=== PATIENT | female | born 1955 | race Caucasian/White ===

== ENCOUNTER → 2020-11-14 15:07 | Outpatient (BNVA) | payer OTHER, SELFPAY | PROVIDERS: PCP Internal Medicine; Visit Provider Advanced Practice Midwife | DX: M85.80 Other specified disorders of bone density and structure, unspecified site (principal); Z86.19 Personal history of other infectious and parasitic diseases | CPT/HCPCS: Q3014 ==

== ENCOUNTER → 2020-12-21 08:38 | Outpatient (BNVA) | payer OTHER, SELFPAY | PROVIDERS: Visit Provider Advanced Practice Midwife ==

== ENCOUNTER 2020-12-28 10:53 | Outpatient (REF) | payer OTHER, SELFPAY ==
--- NOTE | ~2020-12-28 | MM_ITS ---
EXAMINATION: BONE DENSITOMETRY CLINICAL INDICATION: Other specified disorders of bone density and structure. COMPARISON: None (current study represents initial baseline exam). TECHNIQUE: Using a [employer] DXA System (software version: 13.1) manufactured by [employer], dual-energy x-ray absorptiometry was performed of the lumbar spine and left hip. The images are of good technical quality. Summary results are attached. FINDINGS: AP SPINE L1-L4: BMD 1.033 g/cm2, Z-score 0.4, T-score -1.2, osteopenia. LEFT FEMUR, NECK: BMD 0.728 g/cm2, Z-score -0.7, T-score -2.2, osteopenia. LEFT FEMUR, TOTAL: BMD 0.756 g/cm2, Z-score -0.8, T-score -2.0, osteopenia. IDENTIFIED RISK FACTORS: Menopause, hysterectomy, bilateral oophorectomy. HISTORY OF FRACTURE: None listed. MEDICATIONS: Calcium supplements or multivitamin, vitamin D. MM/XR DEXA axial skeleton IMPRESSION: 1. DIAGNOSIS: Osteopenia based on the lowest T-score value of -2.2 in the femoral neck applying World Health Organization criteria. 2. 10-YEAR FRACTURE RISK PREDICTION, FRAX: Major osteoporotic fracture (clinical spine, forearm, hip or shoulder) 10.4%. Hip fracture 1.9%. 3. Treatment Recommendations: NOF guidelines recommend consideration for treatment in postmenopausal women and men age 50 and older presenting with the following: -A hip or vertebral (clinical or morphometric) fracture. -T-score less than or equal to -2.5 at the femoral neck or spine after appropriate evaluation to exclude secondary causes. -Low bone mass at the hip or spine and a 10-year fracture probability by FRAX of greater than or equal to 3% for hip fracture or greater than or equal to 20% for major osteoporotic fracture based on the [place] adapted WHO algorithm. 4. Other Recommendations: All treatment decisions require clinical judgment and consideration of individual patient factors, including patient preferences, comorbidities, previous drug use, risk factors not captured in the FRAX model (e.g. frailty, falls, vitamin D deficiency, increased bone turnover, interval significant decline in bone density) and possible under or overestimation of fracture risk by FRAX. Additional medical evaluation for secondary cause of low bone mineral density may be appropriate. FUTURE SCAN RECOMMENDATION: People with diagnosed cases of osteoporosis or at high risk for fracture should have regular bone mineral density tests. For patients eligible for Medicare, routine testing is allowed once every 2 years. The testing frequency can be increased to one year for patients who have rapidly progressing disease, those who are receiving or discontinuing medical therapy to restore bone mass, or have additional risk factors.
== END 2020-12-28 10:54 | disposition home or self-care (01) ==
LOC: HO.MAMMO 10:53
PROVIDERS: Visit Provider Advanced Practice Midwife
DX: Z13.820 Encounter for screening for osteoporosis (principal); Z78.0 Asymptomatic menopausal state; M85.80 Other specified disorders of bone density and structure, unspecified site; Z90.710 Acquired absence of both cervix and uterus; Z90.722 Acquired absence of ovaries, bilateral
CPT/HCPCS: 77080

== ENCOUNTER 2021-03-31 08:21 | Outpatient (REF) | payer OTHER, SELFPAY ==
--- NOTE | ~2021-03-31 | MM_ITS ---
EXAMINATION: MM SCREENING DIGITAL BREAST TOMOSYNTHESIS, BILATERAL CLINICAL INFORMATION: Screening. Asymptomatic. The lifetime risk of breast cancer based on the Tyrer-Cuzick Model is 7%. COMPARISON: Outside mammography: 09/06/2016, 08/31/2016, 06/10/2015 ([facility]). TECHNIQUE: Digital breast tomosynthesis is performed in both the craniocaudal and mediolateral oblique views along with computer-aided detection (CAD). Synthesized 2D images are generated from the tomosynthesis. FINDINGS: There are scattered areas of fibroglandular density (ACR BI-RADS breast composition Category b). There are no significant masses, abnormal calcifications, or other abnormalities. The axilla and skin contours are unremarkable. No significant changes outside exams. MM/MM tomosynthesis screening BI IMPRESSION: No mammographic evidence of malignancy. ASSESSMENT: BI-RADS 1: Negative RECOMMENDATION: Routine annual mammography screening. This patient's information was entered into a reminder system with a target due date for their next mammogram.
== END 2021-03-31 08:22 | disposition home or self-care (01) ==
LOC: HO.MAMMO 08:21
PROVIDERS: Visit Provider Advanced Practice Midwife
DX: Z12.31 Encounter for screening mammogram for malignant neoplasm of breast (principal)
CPT/HCPCS: 77063; 77067

== ENCOUNTER 2021-06-13 07:28 | Outpatient (REF) | payer OTHER, SELFPAY | END 2021-06-13 07:29 | disposition home or self-care (01) | LOC: HO.LAB 07:28 | PROVIDERS: PCP Internal Medicine; Visit Provider Internal Medicine | DX: Z20.822 Contact with and (suspected) exposure to COVID-19 (principal) | CPT/HCPCS: C9803; U0003; U0005 ==

== ENCOUNTER 2021-11-09 08:07 | Outpatient (REF) | payer OTHER, SELFPAY ==
[2021-11-09 09:03] LABS: COVID-19 Test Negative (Negative); IDNOW Serial# 16C4AD1C
== END 2021-11-09 08:08 | disposition home or self-care (01) ==
LOC: HO.LAB 08:07
PROVIDERS: Visit Provider Internal Medicine
DX: Z20.822 Contact with and (suspected) exposure to COVID-19 (principal)
CPT/HCPCS: 87635; C9803

== ENCOUNTER 2022-04-10 13:25 | Outpatient (REF) | payer OTHER, SELFPAY ==
--- NOTE | ~2022-04-10 | MM_ITS ---
EXAMINATION: MM SCREENING DIGITAL BREAST TOMOSYNTHESIS, BILATERAL CLINICAL INFORMATION: Screening. Asymptomatic. The lifetime risk of breast cancer based on the Tyrer-Cuzick Model is 6%. COMPARISON: Mammography: 03/31/2021; outside mammography 09/06/2016, 08/31/2016 ([facility] TECHNIQUE: Digital breast tomosynthesis is performed in both the craniocaudal and mediolateral oblique views along with computer-aided detection (CAD). Synthesized 2D images are generated from the tomosynthesis. FINDINGS: There are scattered areas of fibroglandular density (ACR BI-RADS breast composition Category b). There are no significant masses, abnormal calcifications, or other abnormalities. The axilla and skin contours are unremarkable. MM/MM tomosynthesis screening BI IMPRESSION: No mammographic evidence of malignancy. ASSESSMENT: BI-RADS 1: Negative RECOMMENDATION: Routine annual mammography screening. This patient's information was entered into a reminder system with a target due date for their next mammogram.
== END 2022-04-10 13:26 | disposition home or self-care (01) ==
LOC: HO.MAMMO 13:25
PROVIDERS: Visit Provider Advanced Practice Midwife
DX: Z12.31 Encounter for screening mammogram for malignant neoplasm of breast (principal)
CPT/HCPCS: 77063; 77067

== ENCOUNTER 2023-01-01 10:52 | Outpatient (REF) | payer MEDICARE, SELFPAY ==
--- NOTE | ~2023-01-01 | MM_ITS ---
EXAMINATION: BONE DENSITOMETRY CLINICAL INDICATION: Other specified disorders of bone density and structure, unspecified site.. COMPARISON: Baseline BD dated 12/28/2020. TECHNIQUE: Using a [employer] DXA System (software version: 13.1) manufactured by [employer], dual-energy x-ray absorptiometry was performed of the lumbar spine and left hip. The images are of good technical quality. Summary results are attached. FINDINGS: AP SPINE L1-L4: Current: BMD 1.002 g/cm2, Z-score 0.4, T-score -1.5, osteopenia, 3.0% decrease from baseline (<5% change is not significant). Baseline: BMD 1.033 g/cm2. LEFT FEMUR, NECK: Current: BMD 0.685 g/cm2, Z-score -0.9, T-score -2.5, osteoporosis. Baseline: BMD 0.728 g/cm2. LEFT FEMUR, TOTAL: Current: BMD 0.726 g/cm2, Z-score -0.8, T-score -2.2, osteopenia, 4.0% decrease from baseline (<5% change is not significant). Baseline: BMD 0.756 g/cm2. IDENTIFIED RISK FACTORS: Menopause. Hysterectomy. Bilateral oophorectomy. HISTORY OF FRACTURE: None listed. MEDICATIONS: Calcium supplement or multivitamin. Vitamin D. MM/XR DEXA axial skeleton IMPRESSION: 1. DIAGNOSIS: Osteoporosis based on the lowest T-score value of -2.5 in the femoral neck applying World Health Organization criteria. 2. 10-YEAR FRACTURE RISK PREDICTION, FRAX: According to the guidelines, FRAX calculation should only be performed on patients in the osteopenia bone density category. Therefore, FRAX was not performed on this patient.? 3. Treatment Recommendations: NOF guidelines recommend consideration for treatment in postmenopausal women and men age 50 and older presenting with the following: -A hip or vertebral (clinical or morphometric) fracture. -T-score less than or equal to -2.5 at the femoral neck or spine after appropriate evaluation to exclude secondary causes. -Low bone mass at the hip or spine and a 10-year fracture probability by FRAX of greater than or equal to 3% for hip fracture or greater than or equal to 20% for major osteoporotic fracture based on the [place] adapted WHO algorithm. 4. Other Recommendations: All treatment decisions require clinical judgment and consideration of individual patient factors, including patient preferences, comorbidities, previous drug use, risk factors not captured in the FRAX model (e.g. frailty, falls, vitamin D deficiency, increased bone turnover, interval significant decline in bone density) and possible under or overestimation of fracture risk by FRAX. Additional medical evaluation for secondary cause of low bone mineral density may be appropriate. FUTURE SCAN RECOMMENDATION: People with diagnosed cases of osteoporosis or at high risk for fracture should have regular bone mineral density tests. For patients eligible for Medicare, routine testing is allowed once every 2 years. The testing frequency can be increased to one year for patients who have rapidly progressing disease, those who are receiving or discontinuing medical therapy to restore bone mass, or have additional risk factors.
== END 2023-01-01 10:53 | disposition home or self-care (01) ==
LOC: HO.MAMMO 10:52
PROVIDERS: PCP Hospitalist; Visit Provider Advanced Practice Midwife
DX: Z13.820 Encounter for screening for osteoporosis (principal); M85.80 Other specified disorders of bone density and structure, unspecified site; Z78.0 Asymptomatic menopausal state
CPT/HCPCS: 77080

== ENCOUNTER → 2023-01-03 15:31 | Outpatient (BNVA) | payer MEDICARE, SELFPAY | PROVIDERS: PCP Hospitalist; Visit Provider Advanced Practice Midwife ==

== ENCOUNTER 2023-09-10 07:49 | Outpatient (AMB) | payer MEDICARE, SELFPAY ==
--- NOTE | 2023-09-10 07:51 | MHC.OFFVIS ---
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 She is doing well with some concerns, particularly about vaginal dryness and an area of concern at her left breast she feels. 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 Currently sexually active. She uses NueEve for vaginal dryness and painful sex. She also reports having dry mouth and dry eyes, she takes Collagen and flax seed oil supplements. She would like to take fish oil supplements but she is vegan. She also takes Osteoporosis supplements recommended in a book by Dr. Mart Cortez. Her Cutting And Printing Machine Operator wanted her to consider Fosamax, she is not interested at this time and wants to trial these supplements first. She says using the NueEve helped improve the dryness, but she still has an area of hypopigmentation with bumpiness to the area. STI testing offered; she accepts. She has a hx of a hysterectomy at 52 due to premalignancy on ovary. Last mammogram; 04/10/22, normal. Colonoscopy is UTD. Denies any family history of breast or colon cancer. She has Osteoporosis. 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 Sexual orientation: Straight/Heterosexual Gender identity: Female Female Reproductive History Menstrual Menopause type: surgical Total pregnancies: 2 Full term: 2 Number of Living Children: 2 Date of Mammogram: 04/10/22 ([facility]) Date of last Bone Density Screenin01/01/23 Review of Systems Const All systems reviewed & are unremarkable except as noted in HPI and below Reports as per HPI Eyes Reports no additional complaints ENT Reports no additional complaints Card Reports no additional complaints Resp Reports no additional complaints GI Reports as per HPI and Reports no additional complaints Reports as per HPI Musc Reports no additional complaints Skin/Breast Reports as per HPI Neuro Reports no additional complaints Psych Reports no additional complaints Endo Reports no additional complaints Demetrio/Lymph Reports no additional complaints Aller/Immun Reports no additional complaints Physical Exam Vital Signs: Last Vital Signs BP 110/76 09/10/23 07:53 BMI result Body Mass Index 19.7 Const General: cooperative, healthy appearing, no acute distress, well developed and alert Orientation/consciousness: patient oriented x3 HEENT Head: Yes normal to inspection Eyes General: appearance normal, both eyes and all related structures Neck Neck: Yes normal visual inspection Thyroid: Thyroid normal Chest Chest palpation & inspection: normal inspection of the chest and other (no puckering, dimpling, peau de orange, retraction, discharge, masses) Breast/axilla inspection: abnormal inspection of the breast (bender hemangioma) Left breast, 7 o'clock Breast/axilla palpation: normal palpation of the breasts Resp Effort & Inspection: normal respiratory effort GI Inspection: Yes normal to inspection and Yes scar Palpation (GI): Soft to palpation Rectal Exam - Female: deferred Other: Area of Hypopigmentation scattered on the vulva. Area of rough texture on the upper area of the left labia minora. General: Yes bladder normal to palpation External Female Exam: normal external appearance and normal appearance of the urethra Speculum Exam - Vagina: normal palpation, abnormal vaginal discharge yellow (creamy, may be NueEve product) and vagina atrophic (Moderate atrophic changes) Speculum Exam - Cervix: normal palpation and Cervix absent Bimanual exam- vagina & uterus: normal bimanual exam, normal palpation, bladder normal to palpation, normal palpation and uterus absent (Vaginal cuff present, no lesions or nodules) Bimanual Exam- Adnexa, other: no masses Skin General skin exam: no rashes or lesions noted Rashes: no rashes Neuro General: patient oriented x3 Cognition (Neuro): normal cognition Extrem General: Yes normal to inspection Psych Attitude: cooperative Thought process: Normal thought process present Thought content: Normal thought content present Assessment & Plan Assessment & Plan (1) Encounter for annual routine gynecological examination: Code(s): Z01.419 - Encounter for gynecological examination (general) (routine) without abnormal findings Plan: Discussed: Current recommendations for pap smears per ASCCP guidelines. Breast awareness, periodic self breast exams and yearly mammogram. Maintain a healthy lifestyle, well balanced diet including Calcium 1,200 mg and Vitamin D 600 IU daily, and routine exercise. Contact the office with any postmenopausal bleeding. All of her questions and concerns were addressed to the best of my ability. Mammogram ordered. She will return in one year for AG. (2) Osteoporosis: Code(s): M81.0 - Age-related osteoporosis without current pathological fracture Plan: Currently on supplements for this, including collagen and a supplement recommended by Dr. Mart Cortez in his book on managing Osteoporosis. Her Cutting And Printing Machine Operator wanted her to consider Fosamax, she is not interested at this time. Continue to follow with Cutting And Printing Machine Operator. 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 Recommended a biopsy for area of leukoplakia to rule out abnormal cellular changes-atypia, or other changes leading up to leading up to vulvar/skin cancer. She will follow up for this procedure when scheduled-skin biopsy. Orders: Orders MM tomosynthesis screening BI Today Z12.31 - Encounter for screening mammogram for malignant neoplasm of breast Coding Level of Care Code Est Pt Prev Care >65y(54091) Diagnoses Encounter for annual routine gynecological examination Z01.419 Osteoporosis M81.0 Leukoplakia of vulva N90.4
[2023-09-10 07:53] VITALS: BP 110/76; BMI 19.7
== END 2023-09-10 08:49 | disposition home or self-care (01) ==
PROVIDERS: PCP Hospitalist; Visit Provider Advanced Practice Midwife
DX: N90.4 Leukoplakia of vulva (principal); M81.0 Age-related osteoporosis without current pathological fracture; Z01.419 Encounter for gynecological examination (general) (routine) without abnormal findings
CPT/HCPCS: 99213; G0101

== ENCOUNTER → 2023-09-10 07:49 | Outpatient (BNVA) | payer MEDICARE, SELFPAY | PROVIDERS: PCP Hospitalist; Visit Provider Advanced Practice Midwife | DX: Z01.419 Encounter for gynecological examination (general) (routine) without abnormal findings (principal); M81.0 Age-related osteoporosis without current pathological fracture; N90.4 Leukoplakia of vulva | CPT/HCPCS: 99212 ==

== ENCOUNTER 2023-09-13 07:27 | Outpatient (REF) | payer MEDICARE, SELFPAY | END 2023-09-13 07:28 | disposition home or self-care (01) | LOC: HO.LNP 07:27 | PROVIDERS: PCP Hospitalist; Visit Provider Advanced Practice Midwife | DX: N90.4 Leukoplakia of vulva (principal) | CPT/HCPCS: 56605; 56606; 88305; 88312 ==

== ENCOUNTER 2023-09-13 07:27 | Outpatient (AMB) | payer MEDICARE, SELFPAY ==
--- NOTE | 2023-09-13 07:43 | A.OFFVIS_ITS ---
Intake Vital Signs 3 09/13/23 07:46 Height 5 ft 7 in Weight 125 lb 10.616 oz BMI 19.7 BP 110/62 Intake Visit Reasons: skin biopsy Intake Note: The patient agreed to use of a director medical writing during this encounter. Scribed for ALVARADO Springer by Karlee Moran director medical writing, on 09/13/2023 at 7:45 am EST Research Subject Required: No Information Interpreted: non-clinical & clinical Director Agricultural Services: Director Agricultural Services Present (Simin PÉREZ) Accompanied by: Self / Same As Patient Allergies penicillin V Allergy (Unknown, Verified 09/13/23 07:47) Rash Sulfa (Sulfonamide Antibiotics) Allergy (Unknown, Verified 09/13/23 07:47) Rash No Known Allergies Allergy (Verified 09/13/23 07:47) Post menopausal: Yes HPI HPI Comments 2 History of Present Illness0 Details She presents for skin bx today secondary to vulvar leukoplakia for further diagnosis of skin conditions including diagnosis of skin cancer. She has been using Nueve cream for one year with slight improvement. Patient states she feels the internal right side feels thicker than left. 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 upper left labia 2. introitus, and slightly to the right of midline Office Procedures Skin Biopsy Details: She was counseled regarding anticipatory guidance for the procedure including bleeding, infection, scarring, pain and damage to nerves and underlying tissues.? She was consented for the procedure, and the consent forms were signed. She is agreeable to have the procedure today. All questions were answered. The skin area was anesthetized with Lidocaine 1% using a 3cc syringe and a 25g needle, 0.5cc was injected perpendicular into the dermis at the biopsy site until elevation was noted. A shave biopsy was utilized. The bleeding site was minimal and controlled by direct pressure for several seconds. Vaseline ointment was applied to the biopsy site. The patient tolerated the procedure well and left the department is good condition. The skin area was anesthetized with Lidocaine 1% using a 3cc syringe and a 25g needle, 0.5cc was injected perpendicular into the dermis at the biopsy site until elevation was noted. A shave biopsy was utilized. The bleeding site was minimal and controlled by direct pressure for several seconds. Vaseline ointment was applied to the biopsy site left labia minora and midline introitus. The patient tolerated the procedure well and left the department is good condition. 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 Instructed patient nothing in the vagina for 3-5 days. Can take an over the counter mild analgesic such as Tylenol or Advil (if no allergies) per the coin machine assembler?s recommendation on dosing, frequency, and follow the directions completely. Avoid scratching the area. Clean with water, dry well and wear clean cotton underwear. Apply Vaseline or Aquaphor to the area prn. Call the office if any: fever (over 100.4), flu like symptoms, foul smelling or signs of infection. Return in 1-2 weeks for test results. Orders: Orders 2 Surgical Today N90.4 - Leukoplakia of vulva Coding Level of Care Code Procedure Only Diagnoses Leukoplakia of vulva N90.4
[2023-09-13 07:46] VITALS: BP 110/62; BMI 19.7
== END 2023-09-13 08:27 | disposition home or self-care (01) ==
PROVIDERS: PCP Hospitalist; Visit Provider Advanced Practice Midwife
DX: N90.4 Leukoplakia of vulva (principal)
CPT/HCPCS: 56605; 56606

== ENCOUNTER 2023-09-24 07:37 | Outpatient (AMB) | payer MEDICARE, SELFPAY ==
[2023-09-24 07:50] VITALS: BP 102/64; BMI 19.6
--- NOTE | 2023-09-24 07:50 | A.OFFVIS_ITS ---
Intake Vital Signs 09/24/23 07:50 Height 5 ft 7 in Weight 125 lb BMI 19.6 BP 102/64 Intake Visit Reasons: Biospy Results Intake Note: Scribed for Maribel Machado CNM by [facility] scribe, on 09/24/2023 at 7:45 AM, EST. Allergies penicillin V Allergy (Unknown, Verified 09/24/23 07:52) Rash Sulfa (Sulfonamide Antibiotics) Allergy (Unknown, Verified 09/24/23 07:52) Rash No Known Allergies Allergy (Verified 09/24/23 07:52) HPI HPI Comments History of Present Illness Details Cheyenne is here today for her test results. She has a recent vulvar biopsy x 2. She reports healing well with no signs of infection. She has previously used a OTC vulvar cream (NeuEve). Dx: Lichen Scleorsus. 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 Orientation/consciousness: patient orientated x 3. General: cooperative, no acute distress, well developed and alert External Female Exam: normal external appearance and other (biopsy sites healing well, no signs of infection) Assessment & Plan Assessment & Plan (1) Encounter to discuss test results: Code(s): Z71.2 - Person consulting for explanation of examination or test findings Plan: Discussed biopsy results diagnosis of lichen sclerosis and treatment options topical corticosteroid cream, she chooses to use her current OTC cream will start re-applying and would like to give it 3-4 months and see if there is interval change in the skin. She plans to do a check in at that time or sooner as needed. All of her questions and concerns were addressed to the best of my ability and shared decision making. She is agreeable to the plan of care. (2) Lichen sclerosus: Code(s): L90.0 - Lichen sclerosus et atrophicus Coding Level of Care Code Est Pt Level 3 (15622) Diagnoses Encounter to discuss test results Z71.2 Lichen sclerosus L90.0
== END 2023-09-24 08:43 | disposition home or self-care (01) ==
PROVIDERS: PCP Hospitalist; Visit Provider Advanced Practice Midwife
DX: Z71.2 Person consulting for explanation of examination or test findings (principal); L90.0 Lichen sclerosus et atrophicus
CPT/HCPCS: 99213

== ENCOUNTER → 2023-09-24 07:37 | Outpatient (BNVA) | payer MEDICARE, SELFPAY | PROVIDERS: PCP Hospitalist; Visit Provider Advanced Practice Midwife | DX: Z71.2 Person consulting for explanation of examination or test findings (principal); L90.0 Lichen sclerosus et atrophicus | CPT/HCPCS: 99212 ==

== ENCOUNTER 2023-11-05 09:07 | Outpatient (REF) | payer MEDICARE, SELFPAY ==
--- NOTE | ~2023-11-05 | MM_ITS ---
EXAMINATION: MM SCREENING DIGITAL BREAST TOMOSYNTHESIS, BILATERAL CLINICAL INFORMATION: Screening. Asymptomatic. COMPARISON: Mammography: This study is compared with prior exams dating back to 2016. TECHNIQUE: Digital breast tomosynthesis is performed in both the craniocaudal and mediolateral oblique views along with computer-aided detection (CAD). Synthesized 2D images are generated from the tomosynthesis. FINDINGS: There are scattered areas of fibroglandular density (ACR BI-RADS breast composition Category b). There are no significant masses, abnormal calcifications, or other abnormalities. MM/MM tomosynthesis screening BI IMPRESSION: No mammographic evidence of malignancy. ASSESSMENT: BI-RADS BI-RADS 1 - Negative RECOMMENDATION: Routine annual mammography screening. 1 year F/U This examination should not preclude the clinical evaluation of a suspicious palpable abnormality. This patient's information was entered into a reminder system with a target due date for their next mammogram.
== END 2023-11-05 09:08 | disposition home or self-care (01) ==
LOC: HO.MAMMO 09:07
PROVIDERS: Visit Provider Advanced Practice Midwife
DX: Z12.31 Encounter for screening mammogram for malignant neoplasm of breast (principal)
CPT/HCPCS: 77063; 77067

== ENCOUNTER → 2023-11-05 09:15 | Outpatient (BNV) | payer MEDICARE, SELFPAY | PROVIDERS: Visit Provider Radiology Diagnostic Radiology | DX: Z12.31 Encounter for screening mammogram for malignant neoplasm of breast (principal) | CPT/HCPCS: 77063; 77067 ==

== ENCOUNTER 2024-07-23 10:27 | Outpatient (REF) | payer MEDICARE, SELFPAY | END 2024-07-23 10:28 | disposition home or self-care (01) | LOC: HO.SH 10:27 | PROVIDERS: Visit Provider Hospitalist | DX: Z01.118 Encounter for examination of ears and hearing with other abnormal findings (principal); H93.293 Other abnormal auditory perceptions, bilateral | CPT/HCPCS: 92557; 92567 ==

== ENCOUNTER 2024-09-18 07:45 | Outpatient (AMB) | payer MEDICARE, SELFPAY ==
--- NOTE | 2024-09-18 07:56 | A.OFFVIS_ITS ---
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 Pylori and Chronic Gastritis show up on the colonoscopy, wanted to talk if H. Pylori could have caused her lichen. Stated that she has to get up 1-2 nights per week to urinate. 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 She is doing well with concerns. History of lichen sclerosus recent diagnosis of H pylori and treatment she found literature that linked H pylori to lichen sclerosus and has some questions regarding this information. Currently she has abdominal bloating and concerns for recent findings on her pancreas. Has a GI specialist at [facility] and a follow up MRI scheduled for October. Using NeuEve for her lichen condition Biweekly, and vaginal suppository for dryness, she reports since treated with a GI infection her LS symptoms have improved and she has no concerns. She is not interested in corticosteroid therapy. Currently sexually active. Uses a lubricant for dryness and vaginal discomfort. History of osteoporosis is using supplements, does not want medical treatment. Is due for a bone density this December. 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 Hysterectomy due to pre ovarian cancer. Last mammogram; 2023. Colonoscopy is UTD. Denies any family history of breast, ovarian or colon cancer. 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 Sexual orientation: Straight/Heterosexual Gender identity: Female Female Reproductive History Menstrual Age of Menarche: 16 Menopause type: surgical Age of menopause: 51 Total pregnancies: 2 Full term: 2 Number of Living Children: 2 History of abnormal pap smear: No History of STI: Yes (genital herpes) Date of Mammogram: 11/05/23 History of abnormal mammogram: No Date of last Bone Density Screenin01/01/23 Review of Systems Const All systems reviewed & are unremarkable except as noted in HPI and below Reports as per HPI Eyes Reports no additional complaints ENT Reports no additional complaints Card Reports no additional complaints Resp Reports no additional complaints GI Reports as per HPI and Reports no additional complaints Reports as per HPI Musc Reports no additional complaints Skin/Breast Reports as per HPI Neuro Reports no additional complaints Psych Reports no additional complaints Endo Reports no additional complaints Demetrio/Lymph Reports no additional complaints Aller/Immun Reports no additional complaints Physical Exam Const General: cooperative, healthy appearing, no acute distress, well developed and alert Orientation/consciousness: patient oriented x3 HEENT Head: Yes normal to inspection Eyes General: appearance normal, both eyes and all related structures Neck Neck: Yes normal visual inspection Thyroid: Thyroid normal Chest Chest palpation & inspection: normal inspection of the chest and other (no puckering, dimpling, peau de orange, retraction, discharge, masses) Breast/axilla inspection: normal inspection of the breasts Breast/axilla palpation: normal palpation of the breasts Resp Effort & Inspection: normal respiratory effort GI Inspection: Yes normal to inspection Palpation (GI): Soft to palpation Rectal Exam - Female: deferred Other: No evidence of lichen changes, no lesions. General: Yes bladder normal to palpation External Female Exam: normal external appearance and normal appearance of the urethra Speculum Exam - Vagina: normal appearance of the vagina, normal palpation, normal vaginal discharge and vagina atrophic Speculum Exam - Cervix: normal appearance of the cervix and normal palpation Bimanual exam- vagina & uterus: normal bimanual exam, normal palpation, uterine size normal, bladder normal to palpation, normal palpation and non-tender Bimanual Exam- Adnexa, other: no masses Skin General skin exam: no rashes or lesions noted Rashes: no rashes Neuro General: patient oriented x3 Cognition (Neuro): normal cognition Extrem General: Yes normal to inspection Psych Attitude: cooperative Thought process: Normal thought process present Assessment & Plan Assessment & Plan (1) Encounter for annual routine gynecological examination: Code(s): Z01.419 - Encounter for gynecological examination (general) (routine) without abnormal findings Category: Medical (2) Osteoporosis: Code(s): M81.0 - Age-related osteoporosis without current pathological fracture Category: Medical Qualifiers: Encounter type: subsequent encounter Osteoporosis type: age-related Plan Discussed: Breast awareness, periodic self breast exams and yearly mammogram. Maintain a healthy lifestyle, well balanced diet including Calcium 1,200 mg and Vitamin D 600 IU daily, and routine exercise. Lichen sclerosus, routine standard of care treatment with corticosteroids, patient is not interested, prefers to continue with her botanicals as they were working well. Is interested in repeating her bone density in December when due, orders placed today. Patient verbalizes understanding and agrees to the plan of care. She was given opportunity to ask questions and all questions were answered to the best of my ability. RTO in 1 year for annual tripe finisher exam, or p.r.n.. This note is constructed using voice recognition software. While every effort has been made to ensure accuracy, fixed route bus operator errors may have been included. Orders: Orders XR DEXA axial skeleton 12/28/24 M81.0 - Age-related osteoporosis without current pathological fracture Coding Level of Care Code Est Pt Prev Care >65y(01431) Diagnoses Encounter for annual routine gynecological examination Z01.419 Osteoporosis M81.0 Encounter type: subsequent encounter Osteoporosis type: age-related
[2024-09-18 08:02] VITALS: BP 126/72; BMI 19.6
== END 2024-09-18 09:02 | disposition home or self-care (01) ==
LOC: HO.HWS 07:45
PROVIDERS: Visit Provider Advanced Practice Midwife
DX: Z01.419 Encounter for gynecological examination (general) (routine) without abnormal findings (principal); M81.0 Age-related osteoporosis without current pathological fracture
CPT/HCPCS: 99397

== ENCOUNTER → 2024-09-18 07:45 | Outpatient (BNVA) | payer MEDICARE, SELFPAY | PROVIDERS: Visit Provider Advanced Practice Midwife | DX: Z01.419 Encounter for gynecological examination (general) (routine) without abnormal findings (principal); M81.0 Age-related osteoporosis without current pathological fracture | CPT/HCPCS: 99397 ==

== ENCOUNTER 2025-01-08 10:47 | Outpatient (REF) | payer MEDICARE, SELFPAY ==
--- NOTE | ~2025-01-08 | MM_ITS ---
EXAMINATION: DXA BONE DENSITY AXIAL HISTORY: Estrogen deficiency TECHNIQUE: [employer]hot Dual energy absorptiometry (DEXA) of the lumbar spine, total left hip, and femoral neck was performed. COMPARISON: Comparison is made with the prior examination dated 01/01/2023. FINDINGS: The bone mineral density of the lumbar spine is 0.989 with a T-score of -1.6, and a Z-score of 0.3. This represents a BMD change of -1.3% compared to the prior exam. This is not statistically significant. The bone mineral density of the left total hip is 0.735 with a T-score of -2.2, and a Z-score of -0.6. This represents a BMD change of 1.2% compared to the prior exam. This is statistically significant. The bone mineral density of the left femoral neck is 0.705 with a T-score of -2.4, and a Z-score of -0.6. This represents a BMD change of 2.9% compared to the prior exam. FRACTURE RISK: The FRAX index suggests a ten year probability of major osteoporotic fracture of 11.7%, and of hip fracture 2.8%. MM/XR DEXA axial skeleton IMPRESSION: Based on bone mineral density, and according to World Health Organization (WHO) criteria, the diagnosis is consistent with osteopenia. All bone density values are in grams per centimeter squared (g/cm2). Statistically, 68% of repeat scans fall within 1 SD (+/- 0.010 g/cm2 for AP spine L1-L4) and 1 SD (+/- 0.012 g/cm2 for femur total) FRAX is a trademark of the [employer]'s [place] for Metabolic Bone Disease, a World Health Organization (WHO) Collaborating Center. Electronically signed by: Marvin Zuluaga MD 01/08/2025 11:54 AM EDT
--- OUTSIDE RECORDS SUMMARY | 2025-01-08 12:23 | XMS_ITS | Encounter Summary ---
Author Organization [facility] Address [address] [place] [address] [place] [address] Care Team Providers Care Evaporator Repairer Name Role Phone Unavailable Primary Care Provider Unavailabl e Encounter Details Date Type Department Care Team (Latest Contact Info) Description 08/23/2021 Abstract [facility]VERSION[facility] Dental, Provider, DDS Social History Tobacco Use Types Packs/Day Years Used Date Smoking Tobacco: Never Assessed Sex and Gender Information Value Date Recorded Sex Assigned at Not on file Legal Sex Male 5:36 PM EDT Gender Identity Not on file Sexual Orientation Not on file documented as of this encounter Plan of Treatment Not on file documented as of this encounter Visit Diagnoses Not on filedocumented in this encounter
--- OUTSIDE RECORDS SUMMARY | 2025-01-08 12:23 | XMS_ITS | Encounter Summary ---
Author Organization [email or web address] Address [address] [place] [address] [place] [address] Care Team Providers Care Dining Car Hop Name Role Phone Unavailable Primary Care Provider Unavailabl e Encounter Details Date Type Department Care Team (Latest Contact Info) Description 12/05/2020 [facility] Dental, Provider, DDS Social [...]
--- OUTSIDE RECORDS SUMMARY | 2025-01-08 12:23 | XMS_ITS | Data Portability ---
Author Organization [place] - [facility] - Start Up, MAIN OFFICE Address [address] [place] [address] Assessment Encounter Date Assessment Date Assessment LastModified by Organization Details LastModified Time 02/06/2023 02/06/2023 Spent 25 minutes for evaluation and management, including face to face interaction, review of labs and notes from specialist, discussion and coordination of care. Not available 02/06/2023 11:50:34 09/11/2023 09/11/2023 Spent 60 minutes for evaluation and management, including face to face interaction, review of labs and notes from specialist, discussion and coordination of care. Not available 09/11/2023 09:01:12 10/02/2023 10/02/2023 Spent 25 minutes for evaluation and management, including face to face interaction, review of labs and notes from specialist, discussion and coordination of care. Not available 10/21/2023 20:07:46 11/07/2023 11/07/2023 Spent 45 minutes for evaluation and management, including face to face interaction, review of labs and notes from specialist, discussion and coordination of care. Not available 11/20/2023 12:25:18 12/01/2024 12/01/2024 Spent 70 minutes for evaluation and management, including face to face interaction, review of labs and notes from specialist, discussion and coordination of care. Not available 12/01/2024 10:11:08 Plan of Treatment Reminders Order Date Submit Date Provider Last Modified By Organization Details Last Modified Time Details Appointments ANNUAL EXAM 2025 11:00A M Dr. Walden Not available Not available Not available Lab lipid panel, blood 2024 025 [facility], [address], [place], [address], 12/08/2024 04:07:39 CBC w/ auto diff 2024 025 [facility], [address], [place], [address], 12/08/2024 04:07:40 CMP, serum or plasma 2024 025 [facility]LE [facility], [address], [place], [address], 12/08/2024 04:07:40 fecal occult blood, stool - stool sample 2022 023 L[facility]LE [facility] (Centralized Electronic Ordering - All Locations), Patient Can Go To The Location Of Their Choice, 10/08/2023 08:18:56 hemoglobi n, qual FIT, stool 2022 023 [facility] (Centralized Electronic Ordering - All Locations), Patient Can Go To The Location Of Their Choice, 04/12/2024 05:01:45 CBC w/ auto diff 2022 024 [facility]LE [facility] (Centralized Electronic Ordering - All Locations), Patient Can Go To The Location Of Their Choice, 09/06/2024 05:01:36 ferritin, serum or plasma 2022 024 [facility]LE [facility] (Centralized Electronic Ordering - All Locations), Patient Can Go To The Location Of Their Choice, 06/28/2024 05:01:32 iron + total iron-bind ing capacity (TIBC), serum 2022 024 [facility] (Centralized Electronic Ordering - All Locations), Patient Can Go To The Location Of Their Choice, 06/28/2024 05:01:32 retic count, blood 2022 024 [facility] (Centralized Electronic Ordering - All Locations), Patient Can Go To The Location Of Their Choice, 06/28/2024 05:01:32 CBC w/ auto diff 2022 024 [facility] (Centralized Electronic Ordering - All Locations), Patient Can Go To The Location Of Their Choice, 02/18/2024 16:14:42 CMP, serum or plasma 2022 024 [facility] (Centralized Electronic Ordering - All Locations), Patient Can Go To The Location Of Their Choice, 02/18/2024 19:36:19 TSH + free T4, serum 2022 023 [facility] (Centralized Electronic Ordering - All Locations), Patient Can Go To The Location Of Their Choice, 03/22/2024 05:01:31 CBC w/ auto diff 2022 023 [facility] (Centralized Electronic Ordering - All Locations), Patient Can Go To The Location Of Their Choice, 09/16/2023 17:30:40 CMP, serum or plasma 2022 023 [facility] (Centralized Electronic Ordering - All Locations), Patient Can Go To The Location Of Their Choice, 09/16/2023 15:25:14 ferritin, serum or plasma 2022 023 [facility] (Centralized Electronic Ordering - All Locations), Patient Can Go To The Location Of Their Choice, 09/16/2023 15:48:34 iron + TIBC + ferritin, serum 2022 023 [facility] (Centralized Electronic Ordering - All Locations), Patient Can Go To The Location Of Their Choice, 03/22/2024 05:01:31 vitamin D, 25-hydrox y, total, serum 2022 023 [facility] (Centralized Electronic Ordering - All Locations), Patient Can Go To The Location Of Their Choice, 09/16/2023 15:48:35 PTH (parathyr oid hormone), intact, serum or plasma 2022 023 [facility] (Centralized Electronic Ordering - All Locations), Patient Can Go To The Location Of Their Choice, [id number] 09/16/2023 17:00:00 lipid panel, blood 2022 023 [facility] (Centralized Electronic Ordering - All Locations), Patient Can Go To The Location Of Their Choice, [id number] 09/16/2023 15:25:17 fecal occult blood, stool 2022 023 [facility] (Centralized Electronic Ordering - All Locations), Patient Can Go To The Location Of Their Choice, [id number] 09/16/2023 07:31:36 Referral endocrino logy referral - Please see pt ASAPIncid ental finding on CT ordered by GI MRI showed 1.5 cm fat containin g and repeat MRI showed the unchanged lesionPt wants to see endo at [facility] 2024 025 LAVELLE Elias MD, [address] [place], [address], 12/29/2024 04:04:[address] referral - Air conductio n was the same b/l but bone conductio n was decrease Air conductio n was the same b/l but bone conductio n was decrease 2023 024 LAVELLE Not available 11/08/2024 05:00:44 sleep medicine referral - Pt reports snoring Want 2023 024 [facility], [address] [facility], [place], [address], 06/07/2024 05:01:10 gastroent erologist referral - Need routine colonosco py Has chronic GERD as well 2023 024 [facility], [address] [place], [address], 06/07/2024 05:01:10 Procedures None recorded. Surgeries None recorded. Imaging XR, neck - Reports worsening of painPleas e fax resutls to [phone] 2022 023 [facility], [address] [place], [address], 08/18/2023 05:01:03 XR, hip, bilateral , 2 view - reports worsening of painplz fax to 2022 023 [facility], [address] [place] [address], [id number], 08/18/2023 05:01:03 XR, lumbar spine, 2 view - reports worsening of pain 2022 023 [facility], [address] [place] [address], [id number], 08/18/2023 05:01:03 Medication Orders Debrox 6.5 % ear drops 2023 024 [id number], [address] [place] [address], [address], 11/07/2023 11:26:40 fluocinol one 0.01 % topical body oil 2022 023 [id number], [address] [place], [address], 09/11/2023 09:57:32 fluocinol one 0.01 % scalp oil and shower cap 2022 023 [facility], [address] [place], [address], 09/17/2023 08:54:03 fluocinol one 0.01 % scalp oil and shower cap 2022 023 [id number], [address] [place] [address], [id number], 09/17/2023 08:59:39 Patient TargetsNo targets recorded. Patient Instructions Encounter Date Encounter Id Patient Instructions Last Modified By Organization Details Last Modified Time 09/11/2023 [id number] Patient Health Questionnaire-9* - scored 3 LAVELLE Not available 09/27/2024 05:01:59 Eczema: Care Instructions Not available 09/11/2023 09:57:27 12/01/2024 [id number] Patient Health Questionnaire-9* Not available 12/01/2024 10:53:13 CAGE questionnaire* Not available 12/01/2024 10:53:13 Reason for Referral Sleep Medicine Referral for Obstructive sleep apnea syndrome Pt reports snoring Want Referring Physician: Sreekanth Walden, Internal Medicine, Encounter Date: 11/07/2023 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 Referral for Hea ring loss Air conduction was the same b/l but bone conduction was decrease Air conduction was the same b/l but bone conduction was decrease Referring Physician: Sreekanth Walden, Internal Medicine, Encounter Date: 11/07/2023 Solution Coordinator Referral for Screening for malignant neoplasm of colon Need routine colonoscopy Has chronic GERD as well Referring Physician: Sreekanth Walden, Internal Medicine, Encounter Date: 11/07/2023 Endocrinology Referral for A drenal mass Please see pt ASAPIncidental finding on CT ordered by GI MRI showed 1.5 cm fat containing and repeat MRI showed the unchanged lesionPt wants to see endo at [facility] Referring Physician: Sreekanth Walden, Internal Medicine, Encounter Date: 12/01/2024 Results Created Date Observation Date Name Description Value Unit Range Abnormal Flag Note LastModifiedBy Organization Detail LastModifiedTime 09/16/2009/16/2023 FECAL OCCUL T BLOOD , IMMUN OCHEM ICAL results Test Cance lled, order administrator error Not Available [facility] (Centralized Electronic Ordering - All Locations) Patient Can Go To The Location Of Their Choice, 09/16/2023 07:31:35 09/16/2009/16/2023 COMPR EHENS TERRY METAB OLIC PANL glucose 88 mg/dL (70-99 ) Not Available [facility] (Centralized Electronic Ordering - All Locations) Patient Can Go To The Location Of Their Choice, 09/16/2023 15:25:14 09/16/2009/16/2023 COMPR EHENS TERRY METAB OLIC PANL BUN 11 mg/dL (8-23) Not Available [facility] (Centralized Electronic Ordering - All Locations) Patient Can Go To The Location Of Their Choice, 09/16/2023 15:25:14 09/16/2009/16/2023 COMPR EHENS TERRY METAB OLIC PANL creatinine 0.8 mg/dL (0.5-1 .0) Not Available [facility] (Centralized Electronic Ordering - All Locations) Patient Can Go To The Location Of Their Choice, 09/16/2023 15:25:14 09/16/2009/16/2023 COMPR EHENS TERRY METAB OLIC PANL sodium 142 mmol/ L (133-1 45) Not Available [facility] (Centralized Electronic Ordering - All Locations) Patient Can Go To The Location Of Their Choice, 09/16/2023 15:25:14 09/16/2009/16/2023 COMPR EHENS TERRY METAB OLIC PANL potassium 4.0 mmol/ L (3.6-5 .2) Not Available [facility] (Centralized Electronic Ordering - All Locations) Patient Can Go To The Location Of Their Choice, 09/16/2023 15:25:14 09/16/2009/16/2023 COMPR EHENS TERRY METAB OLIC PANL chloride 105 mmol/ L (98-10 7) Not Available [facility] (Centralized Electronic Ordering - All Locations) Patient Can Go To The Location Of Their Choice, 09/16/2023 15:25:14 09/16/2009/16/2023 COMPR EHENS TERRY METAB OLIC PANL bicarbonate 28 mmol/ L (22-29 ) Not Available [facility] (Centralized Electronic Ordering - All Locations) Patient Can Go To The Location Of Their Choice, 09/16/2023 15:25:14 09/16/2009/16/2023 COMPR EHENS TERRY METAB OLIC PANL anion gap 9 (4-17) Not Available [facility] (Centralized Electronic Ordering - All Locations) Patient Can Go To The Location Of Their Choice, 09/16/2023 15:25:14 09/16/2009/16/2023 COMPR EHENS TERRY METAB OLIC PANL albumin 4.4 gm/dL (3.4-4 .8) Not Available [facility] (Centralized Electronic Ordering - All Locations) Patient Can Go To The Location Of Their Choice, 09/16/2023 15:25:14 09/16/2009/16/2023 COMPR EHENS TERRY METAB OLIC PANL calcium 9.2 mg/dL (8.6-1 0.5) Not Available [facility] (Centralized Electronic Ordering - All Locations) Patient Can Go To The Location Of Their Choice, 09/16/2023 15:25:14 09/16/2009/16/2023 COMPR EHENS TERRY METAB OLIC PANL bilirubin,to oren 0.4 mg/dL (0-1.2 ) Not Available [facility] (Centralized Electronic Ordering - All Locations) Patient Can Go To The Location Of Their Choice, 09/16/2023 15:25:14 09/16/2009/16/2023 COMPR EHENS TERRY METAB OLIC PANL total protein 6.3 gm/dL (6.2-8 .2) Not Available [facility] (Centralized Electronic Ordering - All Locations) Patient Can Go To The Location Of Their Choice, 09/16/2023 15:25:14 09/16/2009/16/2023 COMPR EHENS TERRY METAB OLIC PANL Ag ratio 2.3 Not Available [facility] (Centralized Electronic Ordering - All Locations) Patient Can Go To The Location Of Their Choice, 09/16/2023 15:25:14 09/16/2009/16/2023 COMPR EHENS TERRY METAB OLIC PANL AST 17 U/L (0-32) Not Available [facility] (Centralized Electronic Ordering - All Locations) Patient Can Go To The Location Of Their Choice, 09/16/2023 15:25:14 09/16/2009/16/2023 COMPR EHENS TERRY METAB OLIC PANL alk phos 78 U/L (35-10 4) Not Available [facility] (Centralized Electronic Ordering - All Locations) Patient Can Go To The Location Of Their Choice, 09/16/2023 15:25:14 09/16/2009/16/2023 COMPR EHENS TERRY METAB OLIC PANL ALT 10 U/L (0-33) Not Available [facility] (Centralized Electronic Ordering - All Locations) Patient Can Go To The Location Of Their Choice, 09/16/2023 15:25:14 09/16/2009/16/2023 COMPR EHENS TERRY METAB OLIC PANL estimated GFR creatinine 78 mL/mi n/1.7 3_M2 Creat inine based estim ated glome normar rextr ation (eGFR ) in adult s is calcu lated using the Natio nal Kidne y Found ation recom ailyn d 2020 CKD-E PI equat ion. Estim ates GFR from serum creat inine , age and sex. Not Available [facility] (Centralized Electronic Ordering - All Locations) Patient Can Go To The Location Of Their Choice, 09/16/2023 15:25:14 09/16/2009/16/2023 IRON & TIBC iron 67 mcg/d L (30-16 0) Not Available [facility] (Centralized Electronic Ordering - All Locations) Patient Can Go To The Location Of Their Choice, 09/16/2023 15:25:15 09/16/2009/16/2023 IRON & TIBC unsaturated iron binding capac 251 mcg/d L (110-3 70) Not Available [facility] (Centralized Electronic Ordering - All Locations) Patient Can Go To The Location Of Their Choice, 09/16/2023 15:25:15 09/16/2009/16/2023 IRON & TIBC est T. iron bind capacity 318 mcg/d L (140-5 30) Not Available [facility] (Centralized Electronic Ordering - All Locations) Patient Can Go To The Location Of Their Choice, [id number] 09/16/2023 15:25:15 09/16/2009/16/2023 IRON & TIBC % iron saturation 21 % (20-55 ) Not Available [facility] (Centralized Electronic Ordering - All Locations) Patient Can Go To The Location Of Their Choice, [id number] 09/16/2023 15:25:15 09/16/2009/16/2023 LIPID PANEL W REFLE X TO DLDL cholesterol, total 223 mg/dL (<200) high Not Available [facility] ([facility] Order[facility] - All Locations) Patient Can Go To The Location Of Their Choice, [id number] 09/16/2023 15:25:16 09/16/20 23 09/16/2023 LIPID PANEL W REFLE X TO DLDL triglyceride s 55 mg/dL (<150) Not Available [facility] ([facility] Order[facility] - All Locations) Patient Can Go To The Location Of Their Choice, 09/16/2023 15:25:16 09/16/2009/16/2023 LIPID PANEL W REFLE X TO DLDL HDL chol 95 mg/dL (>39) Not Available [facility] (Centralized Electronic Ordering - All Locations) Patient Can Go To The Location Of Their Choice, 09/16/2023 15:25:16 09/16/2009/16/2023 LIPID PANEL W REFLE X TO DLDL LDL cholesterol, calculated 117 mg/dL (0-130 ) Not Available [facility] (Centralized Electronic Ordering - All Locations) Patient Can Go To The Location Of Their Choice, 09/16/2023 15:25:16 09/16/2009/16/2023 LIPID PANEL W REFLE X TO DLDL non HDL cholesterol (calc) 128 mg/dL (<160) Not Available [facility] ([facility] Ordering - All Locations) Patient Can Go To The Location Of Their Choice, 09/16/2023 15:25:16 09/16/2009/16/2023 LIPID PANEL W REFLE X TO DLDL cholesterol/ HDL ratio (calc) 2.3 (<5.0) Refer ence range for child derrick have not been well estab cuco meyers. Adult refer ence range is equal or less than 5 Not Available [facility] (Centralized Electronic Ordering - All Locations) Patient Can Go To The Location Of Their Choice, 09/16/2023 15:25:16 09/16/2009/16/2023 EDISON TIN ferritin 25 NG/mL (14-28 3) Not Available [facility] (Centralized Electronic Ordering - All Locations) Patient Can Go To The Location Of Their Choice, 09/16/2023 15:48:34 09/16/2009/16/2023 25OH VITAM IN D 25OH vitamin D 68.7 NG/mL (20-50 ) high Not Available [facility] (Centralized Electronic Ordering - All Locations) Patient Can Go To The Location Of Their Choice, 09/16/2023 15:48:35 09/16/2009/16/2023 PTH, INTAC T PTH, intact 43 pg/mL (15-65 ) Not Available [facility] (Centralized Electronic Ordering - All Locations) Patient Can Go To The Location Of Their Choice, [id number] 09/16/2023 17:00:00 09/16/2009/16/2023 COMPL ETE CBC WITH DIFF WBC 3.7 K/mm3 (4.0-1 1.0) low Not Available [facility] (Centralized Electronic Ordering - All Locations) Patient Can Go To The Location Of Their Choice, [id number] 09/16/2023 17:30:40 09/16/2009/16/2023 COMPL ETE CBC WITH DIFF RBC 4.55 M/mm3 (4.20- 5.40) Not Available [facility] (Centralized Electronic Ordering - All Locations) Patient Can Go To The Location Of Their Choice, [id number] 09/16/2023 17:30:40 09/16/2009/16/2023 COMPL ETE CBC WITH DIFF HGB 13.0 gm/dL (11.7- 15.5) Not Available [facility] (Centralized Electronic Ordering - All Locations) Patient Can Go To The Location Of Their Choice, [id number] 09/16/2023 17:30:40 09/16/2009/16/2023 COMPL ETE CBC WITH DIFF HCT 42.2 % (35.7- 45.8) Not Available [facility] (Centralized Electronic Ordering - All Locations) Patient Can Go To The Location Of Their Choice, [id number] 09/16/2023 17:30:40 09/16/2009/16/2023 COMPL ETE CBC WITH DIFF MCV 92.7 fL (80.0- 100.0) Not Available [facility] (Centralized Electronic Ordering - All Locations) Patient Can Go To The Location Of Their Choice, [id number] 09/16/2023 17:30:40 09/16/2009/16/2023 COMPL ETE CBC WITH DIFF MCH 28.6 pg (27.0- 34.0) Not Available [facility] (Centralized Electronic Ordering - All Locations) Patient Can Go To The Location Of Their Choice, [id number] 09/16/2023 17:30:40 09/16/2009/16/2023 COMPL ETE CBC WITH DIFF MCHC 30.8 g/dL (33.0- 37.0) low Not Available [facility] (Centralized Electronic Ordering - All Locations) Patient Can Go To The Location Of Their Choice, 09/16/2023 17:30:40 09/16/2009/16/2023 COMPL ETE CBC WITH DIFF plt 183 K/mm3 (150-4 60) Not Available [facility] (Centralized Electronic Ordering - All Locations) Patient Can Go To The Location Of Their Choice, 09/16/2023 17:30:40 09/16/2009/16/2023 COMPL ETE CBC WITH DIFF RDW-SD 46.3 fL (<47.0 ) Not Available [facility] (Centralized Electronic Ordering - All Locations) Patient Can Go To The Location Of Their Choice, 09/16/2023 17:30:40 09/16/2009/16/2023 COMPL ETE CBC WITH DIFF MPV 12.9 fL (9.4-1 2.4) high Not Available [facility] (Centralized Electronic Ordering - All Locations) Patient Can Go To The Location Of Their Choice, 09/16/2023 17:30:40 09/16/2009/16/2023 COMPL ETE CBC WITH DIFF automated NRBC 0.0 #/100 _WBC' s Not Available [facility] (Centralized Electronic Ordering - All Locations) Patient Can Go To The Location Of Their Choice, 09/16/2023 17:30:40 09/16/2009/16/2023 COMPL ETE CBC WITH DIFF abs. NRBC 0.0 K/mm3 Not Available [facility] (Centralized Electronic Ordering - All Locations) Patient Can Go To The Location Of Their Choice, 09/16/2023 17:30:40 09/16/2009/16/2023 COMPL ETE CBC WITH DIFF neut # 2.2 K/mm3 (1.3-7 .0) Not Available [facility] (Centralized Electronic Ordering - All Locations) Patient Can Go To The Location Of Their Choice, 09/16/2023 17:30:40 09/16/2009/16/2023 COMPL ETE CBC WITH DIFF lymph # 1.1 K/mm3 (0.8-3 .1) Not Available [facility] (Centralized Electronic Ordering - All Locations) Patient Can Go To The Location Of Their Choice, 09/16/2023 17:30:40 09/16/2009/16/2023 COMPL ETE CBC WITH DIFF mono# 0.3 K/mm3 (0.4-0 .9) low Not Available [facility] (Centralized Electronic Ordering - All Locations) Patient Can Go To The Location Of Their Choice, [id number] 09/16/2023 17:30:40 09/16/20 23 09/16/2023 COMPL ETE CBC WITH DIFF eo # 0.1 K/mm3 (0.0-0 .4) Not Available [facility] (Centralized Electronic Ordering - All Locations) Patient Can Go To The Location Of Their Choice, 09/16/2023 17:30:40 09/16/2009/16/2023 COMPL ETE CBC WITH DIFF baso # 0.0 K/mm3 (0.0-0 .1) Not Available [facility] (Centralized Electronic Ordering - All Locations) Patient Can Go To The Location Of Their Choice, 09/16/2023 17:30:40 09/16/2009/16/2023 COMPL ETE CBC WITH DIFF abs. imm gran 0.0 K/mm3 Not Available [facility] ([facility] Order[facility] - All Locations) Patient Can Go To The Location Of Their Choice, 09/16/2023 17:30:40 09/16/2009/16/2023 COMPL ETE CBC WITH DIFF neut 58.4 % (44-76 ) Not Available [facility] (Centralized Electronic Ordering - All Locations) Patient Can Go To The Location Of Their Choice, 09/16/2023 17:30:40 09/16/2009/16/2023 COMPL ETE CBC WITH DIFF lymph 30.6 % (15-43 ) Not Available [facility] (Centralized Electronic Ordering - All Locations) Patient Can Go To The Location Of Their Choice, 09/16/2023 17:30:40 09/16/2009/16/2023 COMPL ETE CBC WITH DIFF monocyte 7.5 % (4.5-1 0.5) Not Available [facility] (Centralized Electronic Ordering - All Locations) Patient Can Go To The Location Of Their Choice, [id number] 09/16/2023 17:30:40 09/16/2009/16/2023 COMPL ETE CBC WITH DIFF eo 2.4 % (0-6) Not Available [facility] (Centralized Electronic Ordering - All Locations) Patient Can Go To The Location Of Their Choice, [id number] 09/16/2023 17:30:40 09/16/2009/16/2023 COMPL ETE CBC WITH DIFF baso 0.8 % (0-2) Not Available [facility] (Centralized Electronic Ordering - All Locations) Patient Can Go To The Location Of Their Choice, [id number] 09/16/2023 17:30:40 09/16/2009/16/2023 COMPL ETE CBC WITH DIFF imm gran 0.3 % Not Available [facility] (Centralized Electronic Ordering - All Locations) Patient Can Go To The Location Of Their Choice, [id number] 09/16/2023 17:30:40 10/07/2010/08/2023 FECAL OCCUL T BLOOD , IMMUN OCHEM ICAL fecal occult blood, immunochem NEGATI VE (neg) Not Available [facility] (Centralized Electronic Ordering - All Locations) Patient Can Go To The Location Of Their Choice, [id number] 10/08/2023 08:18:55 01/24/2001/01/2023 imagi ng/di agnos tic resul t No observ ation record ed. [address] [place], [address], 01/23/2023 15:23:09 01/09/20 25 01/08/2025 imagi ng/di agnos tic resul t No observ ation record ed. [facility] [address] [place] [address] [place], [id number], 01/08/2025 12:15:09 Result Notes None recorded. Procedures Surgical History None recorded. Imaging Results Imaging Date Name Status LastModified by [facility] Details LastModified Time 01/01/2023 imaging/diagn ostic result active [address] [place], [address], 01/23/2023 15:23:09 01/08/2025 imaging/diagn ostic result active [facility] [address] [place] [address] [place], [address], 01/08/2025 12:15:09 Procedure Notes None recorded. Medical Equipment None Reported. Allergies No known drug allergies Medications Name Sig Start Date Stop Date Status Note LastModified by Organization Details LastModified Time amoxicillin 500 mg capsule TAKE TWO CAPSULES BY MOUTH TWICE A DAY FOR 14 DAYS active Not Available Not Available No t Available ketoconazole 2 % shampoo PLEASE SEE ATTACHED FOR DETAILED DIRECTIONS active Not Available Not Available N ot Available clarithromyc in 500 mg tablet TAKE ONE TABLET BY MOUTH EVERY 12 HOURS FOR 14 DAYS active Not Available Not Available Not Available Debrox 6.5 % ear drops INSTILL 5 DROPS INTO AFFECTED EAR(S) BY OTIC ROUTE 2 TIMES PER DAY 2023 active Not Available Not Available Not Avai lable fluocinolone 0.01 % topical body oil PLEASE SEE ATTACHED FOR DETAILED DIRECTIONS active Not Available Not Available N ot Available omeprazole 20 mg capsule,vivian yed release TAKE ONE CAPSULE BY MOUTH TWICE A DAY FOR 14 DAYS active Not Available Not Available No t Available ketoconazole 2 % topical cream APPLY A THIN LAYER TO AFFECTED AREAS BEHIND THE EARS/NASAL FOLDS TO TREAT RASH TWICE A DAY active Not Available Not Available Not Available Laxative (bisacodyl) 5 mg tablet,delay ed release TAKE 4 TABLETS BY MOUTH ONCE active Not Available Not Available N ot Available fluocinolone 0.01 % scalp oil and shower cap PLEASE SEE ATTACHED FOR DETAILED DIRECTIONS active Not Available Not Available N ot Available GaviLyte-G 236 gram-22.74 gram-6.74 gram-5.86 gram oral solution TAKE DIRECTED active Not Available Not Available No t Available Vitals Date Recorded Body height Heart rate Respiratory rate Body mass index (BMI) Body weight Oxygen saturation Oxygen saturation in Arterial blood by Pulse oximetry Systolic blood pressure Diastolic blood pressure Provider Name and Address Organization Details Last Updated DateTime 5 169.42 cm 57 /min 12 /min 19.4 kg/m2 01335.8 6 g 98 % 98 % 105 mm[Hg] 60 mm[Hg] Sreekanth Walden DO [address], [place], [address], [place] - [facility] 5 10:16:42 Date Recorded Body weight Provider Name an d Address Organization Details Last Updated DateTime 02/06/2023 [address].01 g Sreekanth Walden, DO [address], [place] [place], [address], [place] [facility] 02/06/2023 10:57:27 Date Recorded Body height Heart rate Respiratory rate Body mass index (BMI) Body weight Oxygen saturation Oxygen saturation in Arterial blood by Pulse oximetry Systolic blood pressure Diastolic blood pressure Provider Name and Address Organization Details Last Updated DateTime 3 169.42 cm 60 /min 12 /min 20.1 kg/m2 93796.2 3 g 98 % 98 % 105 mm[Hg] 60 mm[Hg] Sreekanth Walden, DO [address], [place], [address], [place] [facility] 3 09:27:24 Date Recorded Heart rate Respiratory rate Oxygen saturation Oxygen saturation in Arterial blood by Pulse oximetry Systolic blood pressure Diastolic blood pressure Provider Name and Address Organization Details Last Updated DateTime 4 12 /min 12 /min 98 % 98 % 95 mm[Hg] 60 mm[Hg] Sreekanth Walden, DO [address], [place], [address], [place] [facility] 4 11:20:53 Social History Question Answer Notes LastModified by Organizat ion Details LastModified Time Tobacco Smoking Status Never Smoker Sreekanth Walden DO [address], [place], [address], [facility] - [facility] 07/11/2022 11:32:52 What Is Your Level Of Alcohol Consumption? None Information not available 07/11/2022 What Is Your Level Of Caffeine Consumption? Moderate 2 Cups Per Daily Information not available 07/11/2022 What Is Your Relationship Status? Information not available 07/11/2022 Are You Sexually Active? Yes Information not available 07/11/2022 Do You Use Any Illicit Or Recreational Drugs? No Information not available 07/11/2022 Do You Have Any Dietary Restrictions? Yes Vegetarian Information not available 07/11/2022 Sex: Unknown Functional Status None recorded. Mental Status None recorded. Family History Relationship Description Onset Age of this Age Resolved Age Notes LastModified by Organization Details LastModified Time Paternal Grandmother Malignant tumor of cervix 89 Not available 07/11 11:14:48 Mother Osteoarthrit is [email or web address] Not available 2024 10:00:23 Medical History No medical history recorded. Gynecological HistoryNo gynecological history recorded. Obstetrics History GPAL:G 0 P 0 0 0 0 Past Encounters Encounter ID Performer Location Encounter Start Date Encounter Closed Date Diagnosis/Indication Diagnosis SNOMED-CT Code Diagnosis ICD10 Code Diagnosis Note [id number] Sreekanth Walden, MAIN OFFICE [address] [place] [address] 07/11/2022 10:55:09 07/13/2022 13:10:09 Intermittent palpitations 079974795 R00.2 recent stressful event and loss of a loved one.happen s randomly, not associated with activity. she is athletic and has no issues during biking and hiking. currently pulse is RRR at 65most likely stress related.wi ll check Thyroid function and other labs as below.sinc e she has vagetarian diet will check for anemia, Iron deficiency and B12 deficiency .she takes daily zinc that might cause palpitatio n. advised pt to stop zinc for 2 weeks and when she restarts, take for 2 weeks and hold for 2 weeks.advi sed pt to hydrate with home made gatorade to calm the adrenal glands.if symptoms occur during activity call the office and come in for EKG. If office is closed to go to ED.if symptoms persist in the next 2 weeks, she will need stress echo. Osteopenia 431413513 M85 .80 had hysterecto my at 52 due to ovarian cancerlast dexa was 1.5 years agoshe is athletic and has good muscle build up.advised her to take collagen and liq calcium and mg.will repeat dexa in 6 months Osteoarthritis 843826889 M19.90 imaging consistent with osteoarthr itis. occasional hip pain.seen by Rheumatolo amy in 2020 who ruled out RA.Has had multiple falls in the past 10 years.jeremi es pain since she is highly active and athletic.S he has mesh after surgery that might be contributi ng to inflammato ry process in her body.pt to add daily turmeric and flax seed oil to her regiment. Also collagen will help.B12 under tongue helps with bone and muscle and nerves. 1-2 times per weekshe walks in the sun already.wi ll check labs as below.pt to check if gluten is part of the issue by eliminatio n diet. Hyperlipidemia 70689342 E78.5 h/o hyperlipid emiadiet and exercise controlled [id number] Sreekanth Walden DO MAIN OFFICE [address] [place] [address] 07/17/2022 12:32:25 07/17/2022 23:51:36 Leukopenia 14172403 D72.819 3.8 wbc was 4.7 in January 2021mono was low 0.3 which was about the same in ass ured patient that could be due to viral illness or stress or this could be her baseline. will repeat in 4 weeks Disorder of vitamin D 38 6515807 E55.9 Vit D and b12 levels were elevated advised pt to decrease the amount of supplement s she take takes [id number] Sreekanth Walden DO MAIN OFFICE [address] [place] [address] 01/29/2023 12:10:27 02/13/2023 13:25:48 Screening for osteoporosis 164537060 Z13.820 Osteoporos is L femur -2.2 in 2020 has worsened to -2.5Spine in 2020 -1.2 now -1.5Surgic al menopause since age 52She is 15 years post menopause due to ovarian tumor and therefore will not be a good candidate for HRT.Mom has had OAShe does yoga and wt lifting on a daily basesSaw a rheumatolo gist for pain and he didn't recommend any medsFosmax was offered which pt rejectedsh e requested PT thinking that might help.Expla ined to pt that her vegan diet might not be sufficient for bone health (since she exercises daily and still her osteopenia has progressed ) , to consider adding some animal protein for better bone health which pt rejected.A lso recommende d liq ca, mag and vitD3, daily collagen along with food rich in cupper and selenium (organ meats) which pt also refused.He r Vit d was high and she was asked to take less Vit D [id number] Sreekanth Walden DO MAIN OFFICE [address] [place] [address] 02/06/2023 10:29:32 02/07/2023 10:19:22 Osteoarthritis 799994666 M19.90 02/06/23Xra ys are reviewed and uploaded.X rays show OA in neck lumbar spine and hip.Report s worsening of pain in neck and hipAdvised pt to start with gluten free diet at least 2-3 weeksIf gluten is not the source then try soy and then corn.Imagi ng consistent with osteoarthr itis. occasional hip pain.Vit D mag and D3 =K2Pt already exercises dailyPt is seeing rheumanti- inflam dietfeels better with collagen,A gain recommende d adding animal proteins and amino acidsAsked about supplement s. explained to pt these supplement s might not obsorb well if they are not with food that they are naturally in, or causes overdose and toxicity and celation of other minerals and vitamins which will not happen if it is taken as a food.Fosam ax was recommende d but pt doesn't want to try itLabs are normal including inflammato ry markers and TSHoffered diclofinec e but she said she will use arnica and heatReferr al to PT is placed seen by Rheumatolo amy in 2020 who ruled out RA.Has had multiple falls in the past 10 years.jeremi es pain since she is highly active and athletic.S he has mesh after surgery that might be contributi ng to inflammato ry process in her body.pt to add daily turmeric and flax seed oil to her regiment. Also collagen will help.B12 under tongue helps with bone and muscle and nerves. 1-2 times per weekshe walks in the sun already.wi ll check labs as below.pt to check if gluten is part of the issue by eliminatio n diet. [id number] Sreekanth Walden DO MAIN OFFICE [address] [place] [address] 09/11/2023 08:57:35 09/26/2023 00:28:57 Active or passive immunization 343793258 Z23 Last COVID booster late MayNo flu vaccineShi ngles vaccine x 1 next is Oct th examination 780801660 Z00.01 No GERD, no N/V/D, no blood or mucus in stool, no wt loss. no melena, no abdominal pain.No fever or wt loss or night sweats.No HERNANDEZ, dizziness, fall, weakness or change in vision.No hearing loss.No lumps or bumps in neck, arm pits or groinNo rashes or skin lesions.No CP or GUTIERREZ.No cough or SOB.No back pain or joint pain.Denie s Depression or anxietytea ches yoga and meditation .No ETOH or weed or cig.Advise d pt to eat less simple carbs and make sure his diet includes healthy fats and proteins and complex carbs.Advi sed use of certain supplement s such Vit D3+ K2, B12, Mag and fish oil, 2-3 times per week.Daily exercise was recommende d.Advised pt to use mineral sunscreen. SPF shirt, hats and sunglasses .Monthly breast self exam (1 week after period) was recommende d.Eye exam by [employer] t once a year. Had an exam had dilation and eye pressure check. all normal.Tic k safety was reviewed (tick check and use of permethrin on clothing). Last pap was many years agoAll normalHas had h/o stage 1 ovarian tumor that was removed 15 years ago. S/p hysterecto my and cervix was removed .menopause since age 52Sexually active with male partner.De nies sexual dysfunctio n.No painful sex.No bleeding after sex.No discharge or abnormal odor. Screening for cardiovascular system disease 536666022 Z13.6 Screening for malignant neoplasm of colon 362861651 Z12.11 Last colonoscop y was in and was normal and was told to repeat in 10 yearsShe will let us know when was the last one. Screening for osteoporosis 749182075 Z13.820 09/11Has Osteoporos isSeeing a chiropract orTaking Collagen, Calcium and vit DThe chiropract or gives her a medication . She is not sure what is in it.Also seeing a rheumatolo gist and has offered her an injection but she wants see if the chiropract or meds can work.Speci al DEXA will be ordered by rheum in spring.Very rare pain.No loss of height.Had high vitD will check levelWill check PTHPt to check et at home and make sure she doesn't loose wt Osteoporos is L femur -2.2 in 2020 has worsened to -2.5 in 2022Spine in 2020 -1.2 now -1.5Surgic al menopause since age 52Shjohanna is 15 years post menopause due to ovarian tumor and therefore will not be a good candidate for HRT.Mom has had OAShe does yoga and wt lifting on a daily basesSaw a rheumatolo gist for pain and he didn't recommend any medsFosmax was offered which pt rejectedsh e requested PT thinking that might help.Expla ined to pt that her vegan diet might not be sufficient for bone health (since she exercises daily and still her osteopenia has progressed ) , to consider adding some animal protein for better bone health which pt rejected.A lso recommende d liq ca, mag and vitD3, daily collagen along with food rich in cupper and selenium (organ meats) which pt also refused.He r Vit d was high and she was asked to take less Vit D Screening mammography 24 589417 Z12.31 Getting a mammo at [facility]. Atopic dermatitis 827618 01 L20.9 Mostly on the scalp for years (10 years) since started dying her hair.Seen a dermatolog ist and was given steroid lotion. Intolerant of cold 12025 000 R68.89 Has been feeling she has a hard time with coldFerrit in was low 25Pt is vegetarian and wishes to stay vegetarian Since pt doesn't wish to eat animal Ferritin l evel below reference range 865928462 R77.8 She takes B12MVC was 93.8 Lesion of bone 708246703 M89.9 Feels its raised mass on the roof of her mouth since start of COVIDdoesn 't feel has changed in size.Its hardand sometimes sore.Was looked at by dentist but dentist was told that is dental daniel and harmless. [id number] Sreekanth Walden DO MAIN OFFICE [address] [facility] [address] [place] [address] 10/02/2023 09:31:07 11/06/2023 21:50:01 Ferritin level below reference range 236697637 R77.8 Ferritin is 25Iron 21%No fatigue but report cold intoleranc e.She is Vegetarian , mostly vegan.She takes B12MVC was 93.0Advise d pt to add more animal protein to her diet.Also she needs colonoscop y, pt has refused so far.The risks were discussed with her during her recent physical, but she chose to do stool immunoassa y only.Repea t labs in 3 months, if not improved pt needs colonoscop y and iron supplement ation. Disorder of vitamin D 38 2465156 E55.9 Vit D level is higher this time. Were elevated in the past . Pt has been advised pt to decrease the amount of supplement s she takes.Expl ained to pt that Vit D is a fat soluble and toxicity can cause hypercalce jermaine, n/v and abd pain calcium stones, as well as chronic toxicity can lead to bone resorption . Screening for malignant neoplasm of colon 691969241 Z12.11 [facility] and was normal and was told to repeat in 10 yearsShe can't recall when was the last colonoscop y. She will let us know when was the last one.She wanted to do FIT.Since her Ferritin is low she might benefit from a colonoscop y if her last one was more than 5 years ago. She is vegan which is most likely the cause of her low ferritin but considerin g her age she might need another colonoscop y.Pt understand s the risk and wanted to do FIT only at this time. Leukopenia 01991473 D72. 819 .7 WBC.[place] is 0.3She has had h/o of leukopenia in the past, and was seen by hematology less than 10 years ago. and was told she has lower WBC.Advise d pt to add more animal protein that contains essential fatty acid and amino acids to her diet To help her bone marrow produce healthy cells.Will monitor every 6 months for any changes and refer to hematology if needed. 3.8 wbc was 4.7 in January 2021mono was low 0.3 which was about the same in januaryreass ured patient that could be due to viral illness or stress or this could be her baseline. will repeat in 4 weeks [id number] Sreekanth Walden DO MAIN OFFICE [address] [facility] [address] [place] [address] 11/07/2023 11:00:46 12/24/2023 15:16:32 Obstructive sleep apnea syndrome 74282778 G47.33 Pt reports snoring at night.Husb and has noticed her snoring is worseNo HERNANDEZ or sleepiness in am.No HTN notedPt has BMI of 20No abnormalit y in throat or nares noted.Refe rral to sleep medicine is placed. Hearing loss 14023800 H9 1.93 Reports decrease hearingFee ls R is worse than LMother has hearing loss in her 80sNoticed Wax in R ear (see below)Some chronic fluid in L earAir conduction was the same b/l but bone conduction was decreaseRe ferral to Audiologis t was placed Impacted c erumen in right ear [id number] 482018 H61.21 R ear cerumen impaction Screening for malignant neoplasm of colon 299793408 Z12.11 Pt might want to go for colonoscop yStool immu-assay was negativeS/ p cholecyste ctomy.has chronic Digestive enzyme+ GERD, no N/V/D, no blood or mucus in stool, no wt loss. no melena, no abdominal pain.Offer ed PPI but pt declined.P t to avoid foods that cause GERD.Pt is strongly urged to get a GI eval and consider both EGD and colonoscop y.Explaine d risk of GI malignancy to pt.Referra l to GI is placed. Report occasional GERDWas on PPI but now is offnow manages with diet.Repor occasional hard/ abnormal stools at times with certain foods, mostly gluten. Suspicious for IBD.Recomm ended probiotics +collagen+ healthy foods+low sugar diet.Refer ral for GI if no improvemen t with above interventi onLast colonoscop y was in el d and was normal and was told to repeat in 10 years/She can't recall when was the last colonoscop y. She will let us know when was the last one.She wanted to do FIT.Since her Ferritin is low she might benefit from a colonoscop y if her last one was more than 5 years ago. She is vegan which is most likely the cause of her low ferritin but considerin g her age she might need another colonoscop y.Pt understand s the risk and wanted to do FIT only at this time. [id number] Sreekanth Walden DO MAIN OFFICE [address] [facility] [address] [place] [address] 12/01/2024 09:59:36 12/02/2024 07:39:52 Active or passive immunization 919255848 Z23 Last COVID booster late May 2023No flu vaccineShi ngles vaccine x 2 Adult heal th examination 604421131 Z00.01 + GERD and epigastric pain no N/V/D, no blood or mucus in stool, no wt loss. no melena, + epigastric pain abdominal pain. (see H pylori)No fever or wt loss or night sweats.No HERNANDEZ, dizziness, fall, weakness or change in vision.No hearing loss.No lumps or bumps in neck, arm pits or groinNo rashes or skin lesions.No CP or GUTIERREZ.No cough or SOB.No new back pain or joint pain Has OADenies Depression . has manageble anxietytea ches yoga and meditation .No ETOH or weed or cig.Vegeta lorenzo dietAdvise d pt to eat less simple carbs and make sure his diet includes healthy fats and proteins and complex carbs.PHQ 9 score 1CAGE score 0Advised use of certain supplement s such Vit D3+ K2, B12, Mag and fish oil, 2-3 times per week.Daily exercise was recommende d.Advised pt to use mineral sunscreen. SPF shirt, hats and sunglasses .Monthly breast self exam (1 week after period) was recommende d.Eye exam by [employer] t once a year. Had an exam had dilation and eye pressure check. all normal.Tic k safety was reviewed (tick check and use of permethrin on clothing). Last pap was many years ago since has had full hystrectom y no pap neededAll normalHas had h/o stage 1 ovarian tumor that was removed 15 years ago. S/p hysterecto my and cervix was removed .menopause since age 52Sexually active with male partner.De nies sexual dysfunctio n.No painful sex.No bleeding after sex.No discharge or abnormal odor.Labs slip given for [facility] since her specialist s are at [facility]. Screening for cardiovascular system disease 277666226 Z13.6 Screening for malignant neoplasm of colon 806898850 Z12.11 12/01/24Pt has been having epigastric pain for the past 2 years was seen by GI in 2023No sig wt loss was 127 now is 123Had colonoscop y and EGD and was dx with H.pylori in FebruaryT was ordered since she has had GI issues showed benign pancreatic lesion and L Adrenal glandRepea t colonoscop y in 10 yearsPt might want to go for colonoscop yStool immu-assay was negativeS/ p cholecyste ctomy.has chronic Digestive enzyme+ GERD, no N/V/D, no blood or mucus in stool, no wt loss. no melena, no abdominal pain.Offer ed PPI but pt declined.P t to avoid foods that cause GERD.Pt is strongly urged to get a GI eval and consider both EGD and colonoscop y.Explaine d risk of GI malignancy to pt.Referra l to GI is placed. Screening for osteoporosis 012859718 Z13.820 12/01/24[facility] repeat DEXA in december 2024 ordered by rheum and will see the rheum in February 05Has Osteoporos isSeeing a chiropract orTaking Collagen, Calcium and vit DThe chiropract or gives her a medication . She is not sure what is in it.Also seeing a rheumatolo gist and has offered her an injection but she wants see if the chiropract or meds can work.Speci al DEXA will be ordered by rheum in spring.Very rare pain.No loss of height.Had high vitD will check levelWill check PTHPt to check et at home and make sure she doesn't loose wt Screening mammography 24 887903 Z12.31 Getting a mammo at [facility].Herminio l do a mammo in 2025Pt would like to have mammo every other yeatlast one was 2022 and was normal at [facility] and it is ordered by her PHYSICIAN NEONATOLOGY Mass of pancreas 9495963 00 K86.89 12/01/24Was seen by [facility] for epigastric pain and was dx and tx for H. Pyloribut since still had abd pain Ct was done that showed incidental findings of adrenal mass and pancreatic mass,Had MRI x 2 [facility]Was [facility] and dx her with functional dyspepsia. Had 6 months f/u MRI in Oct and both adrenal mass and pancreatic mass were stable and unchangedC A19-9 was very mildly elevatedst ill Reports some epigastric Had EUS last week results were uploadedAs per report (uploaded) the cystic lesion was not biopsies.P ath obtained from stomach and not the cystic lesion is pendingPt is meeting next Saturday with surgeon (pancreati c specialist ) regarding how to monitor the mass and the GI at [facility] will f/u on biopsy on the stomach bx results Adrenal mass 331438722 R 19.09 Incidental finding of L adrenal mass on CT ordered by GIf/u MRI showed 1.5 cm fat containing and repeat MRI 6 months later showed the unchanged lesionPt wants to see endo at [facility] which was sentReassu red pt Helicobact er pylori gastrointestinal tract infection 771434146 A04.8 Had GERDWas seen by GI and was tx by antibiotic Reports some epigastric GI thinks she has functional dyspesia (has had her gallbladde r removed 2001, which was complicate d abd wall infection and has had to get a mesh 2006)Had EUS last week results were uploadedAs per the cystic lesion was not biopsiesPa th is pendingPt is meeting next Saturday with surgeon (pancreati c specialist ) regarding how to monitor the mass and the GI at [facility] will f/u on biopsy on the stomachPt to await result of bx and if negative then consider tx for functional dyspepsia Health Concerns Section Related Observation LastModified by Organization Detai ls LastModified Time None Recorded Concern Status LastModified by Organization Details LastModified Time None Recorded Advance Directives Directive None Recorded Payers Encounter Date Sequence Insurance Name Policy Number Policy Rivas Covered Member ID Rivas Member ID Guarantor Name 02/06/2023 1 [place]MED[place]ARE [place] PPO) [id number] Cheyenne Serrato Vecchia [id number] Cheyenne Vecchia 09/11/2023 1 [place] PPO) [id number] Cehyenne Serrato Vecchia [id number] Cheyenne Vecchia 10/02/2023 1 [place] PPO) [id number] Cheyenne Serrato Vecchia [id number] Cheyenne Vecchia 11/07/2023 1 [place] PPO) [id number] Cheyenne Alegria [id number] 411 Cheyenne Alegria 12/01/2024 1 [place] P[place]) [id number] Cheyenne Alegria [id number] Cheyenne Alegria Notes Date Note Type Note Provider Name and Address Organization Details Recorded Time 02/06/2023 text/html Xrays are review ed and uploaded.Xrays show OA in neck lumbar spine and hip.Reports worsening of pain in neck and hipAdvised pt to start with gluten free diet at least 2-3 weeksIf gluten is not the source then try soy and then corn.Imaging consistent with osteoarthritis. occasional hip pain.Vit D mag and D3 + K2Pt already exercises dailyPt is seeing rheum in march but in the past rheum has not been able to offer much help.Recommended anti-inflam dietFeels better with collagen,Again recommended adding animal proteins and amino acidsAsked about supplements. Explained to pt these supplements might not absorb well if they are not with food that they are naturally occur, or causes overdose and toxicity and Celation of other minerals and vitamins which will not happen if it is taken as a food.Fosamax was recommended but pt doesn't want to try itLabs are normal including inflammatory markers and TSHOffered diclofinece but she said she will use arnica and heatNo new wt lossRecent Labs were reviewed.No neuro deficitDenies dry skin or brittle hairNo GERD, no N/V/D, no blood or mucus in stool, no wt loss. no melena, no abdominal pain. Sreekanth Walden, DO [address] [facility] [address], [place], [address], [facility] - [facility] Up 02/06/2023 11:50:51 09/11/2023 text/html No GERD, no N/V/ D, no blood or mucus in stool, no wt loss. no melena, no abdominal pain.No fever or wt loss or night sweats.No HERNANDEZ, dizziness, fall, weakness or change in vision.No hearing loss.No lumps or bumps in neck, arm pits or groinNo rashes or skin lesions.No CP or GUTIERREZ.No cough or SOB.No back pain or joint pain.Denies Depression or anxietyteaches yoga and meditation.No ETOH or weed or cig.Has OsteoporosisSeeing a chiropractorTaking Collagen, Calcium and vit DThe chiropractor gives her a medication. She is not sure what is in it.Also seeing a garbage collector driver and has offered her an injection but she wants see if the chiropractor meds can work.Special DEXA will be ordered by rheum in spring.Very rare pain.No loss of height.Had high vitD will check levelWill check PTHPt to check et at home and make sure she doesn't loose wtMostly on the scalp for years (10 years) since started dying her hair.Seen a lpn rn and was given steroid lotion.Has been feeling she has a hard time with coldFerritin was low 25Pt is vegetarian and wishes to stay vegetarianSince pt doesn't wish to eat animalFeels its raised mass on the roof of her mouth since start of COVIDdoesn't feel has changed in size.Its hardand sometimes sore.Was looked at by dentist but dentist was told that is dental daniel and harmless. Sreekanth Walden DO [address], [place], [id number], [place] - [facility] 09/21/2023 16:41:13 10/02/2023 text/html Ferritin is 25Ir on 21%No fatigue but report cold intolerance.She is Vegetarian, mostly vegan.She takes B12MVC was 93.0Advised pt to add more animal protein to her diet.Also she needs colonoscopy, pt has refused so far.The risks were discussed with her during her recent physical, but she chose to do stool immunoassay only.Repeat labs in 3 months, if not improved pt needs colonoscopy and iron supplementation. 3.7 WBC.[place] is 0.3She has had h/o of leukopenia in the past, and was seen by hematology less than 10 years ago. and was told she has lower WBC.Advised pt to add more animal protein that contains essential fatty acid and amino acids to her diet To help her bone marrow produce healthy cells.Will monitor every 6 months for any changes and refer to hematology if needed. Sreekanth Walden DO [address], [place], [id number], [place] - [facility] 10/21/2023 20:11:50 11/07/2023 text/html Pt reports snori ng at night. has noticed her snoring is worseNo HERNANDEZ or sleepiness in am.No HTN notedReferral to sleep medicine is placed.Reports decrease hearingFeels R is worse than LMother has hearing loss in her 80sNoticed Wax in R earSome chronic fluid in L earAir conduction was the same b/l but bone conduction was decreaseReferral to Meat Passer was placed.Pt might want to go for colonoscopyStool immu-assay was negativeS/p cholecystectomy.has chronic Digestive enzyme+ GERD, no N/V/D, no blood or mucus in stool, no wt loss. no melena, no abdominal pain.Offered PPI but pt declined.Pt to avoid foods that cause GERD.Referral to GI is placed. Sreekanth Walden DO [address] [facility] [address], [place], [id number], [place] - [facility] 11/20/2023 12:25:27 12/01/2024 text/html See A/P Sreekanth Walden DO [address] [facility] [address], [place], [id number], [place] - [facility] 12/01/2024 12:31:30 OBGyn Episode No OBEpisode recorded.
--- OUTSIDE RECORDS SUMMARY | 2025-01-08 12:23 | XMS_ITS | Encounter Summary ---
Author Organization [facility] Address [address] [place] [address] Care Team Providers Care Potato Pancake Frier Name Role Phone Unavailable Primary Care Provider Unavailabl e Encounter Details Date Type Department Care Team (Latest Contact Info) Description 09/02/2019 [facility] CONVERSIONS Dental, Provider, DDS Social [...]
--- OUTSIDE RECORDS SUMMARY | 2025-01-08 12:23 | XMS_ITS | Encounter Summary ---
Author Organization [employer] Address [address] [place] [address] [place] [address] Care Team Providers Care Conventions Reservationist Name Role Phone Unavailable Primary Care Provider Unavailabl e Encounter Details Date Type Department Care Team (Latest Contact Info) Description 02/28/2022 [facility] CONVERSION[facility] Dental, Provider, DDS Social [...]
--- OUTSIDE RECORDS SUMMARY | 2025-01-08 12:23 | XMS_ITS | Clinical Summary ---
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 Role Phone Unavailable Primary Care Provider Unavailabl e Social History Tobacco Use Types Packs/Day Years Used Date Smoking Tobacco: Never Assessed Sex and Gender Information Value Date Recorded Sex Assigned at Not on file Legal Sex Male 5:36 PM EDT Gender Identity Not on file Sexual Orientation Not on file Plan of Treatment Health Maintenance Due Date Last Done Comments CT Colonography 1955 Colonoscopy 1955 Colorectal Cancer Screening 1955 Depression Screening 1955 FIT DNA/Cologuard 1957 FIT 1957 FOBT 1957 Lipid Panel 1955 Sigmoidoscopy 1957 Alcohol/Substance Use Screening 1969 Tobacco Screening 1969 DTaP/Tdap/Td Vaccines (1 - Tdap) 1976 Pneumococcal Vaccine: 50+ Years (1 of 1 - PCV) 2007 Zoster Vaccines (1 of 2) 2007 Dental X-Ray: Full Mouth 01/24/2022 01/23/2019, 02/26 Dental Oral Exam 02/22/2022 08/23/2021, 05/2021, 09/02/2019, Additional history exists Dental Prophylaxis 09/01/2022 02/28/2022, 1 , 12/05/2020, Additional history exists Dental X-Ray: Bitewings 03/01/2023 02/29/20, 12/05/2020, 01/23/2019, Additional history exists COVID-19 Vaccine ( - season) 2024 Influenza Vaccine (#1) 2024 RSV Patients and Patients Aged 60 years or older (1 - 1-dose 75+ series) 2032 HIB Vaccines Aged Out No longer eligi ble based on patient's age to complete this topic HPV Vaccines Aged Out No longer eligi ble based on patient's age to complete this topic Hepatitis A Vaccines Aged Out No long er eligible based on patient's age to complete this topic Hepatitis B Vaccines Aged Out No long er eligible based on patient's age to complete this topic IPV Vaccines Aged Out No longer eligi ble based on patient's age to complete this topic Meningococcal Vaccine Aged Out No solange nilam eligible based on patient's age to complete this topic RSV under 20 months Aged Out No longe r eligible based on patient's age to complete this topic Rotavirus Vaccines Aged Out No longer eligible based on patient's age to complete this topic Procedures Procedure Name Priority Date/Time Associated Diagnosis Comments PROPHYLAXIS - ADULT Routine 02/28/2022 1 2:00 AM EDT BITEWINGS - 4 RADIOGRAPHIC IMAGES Routine 02/28/2022 12:00 AM EDT PERIODIC ORAL EVALUATION - ESTABLISHED PATIENT Routine 08/23/2021 12:00 AM EDT INTRAORAL - COMPLETE SERIES OF RADIOGRAPHIC IMAGES Routine 01/23/2019 12:00 AM EDT from Last 3 Months or Most Recently Relevant to Health Maintenance
--- OUTSIDE RECORDS SUMMARY | 2025-01-08 12:23 | XMS_ITS | Encounter Summary ---
Author Organization [employer] Address [address] [place] [address] Care Team Providers Care Battery Tester Field Name Role Phone Unavailable Primary Care Provider Unavailabl e Encounter Details Date Type Department Care Team (Latest Contact Info) Description 01/23/2019 [facility]VERSION[facility] Dental, Provider, DDS Social [...]
== END 2025-01-08 10:48 | disposition home or self-care (01) ==
LOC: HO.MAMMO 10:47
PROVIDERS: Absent Provider Internal Medicine Rheumatology; PCP Hospitalist; Visit Provider Advanced Practice Midwife
DX: M81.0 Age-related osteoporosis without current pathological fracture (principal)
CPT/HCPCS: 77080

== ENCOUNTER → 2025-01-08 11:00 | Outpatient (BNV) | payer MEDICARE, SELFPAY | PROVIDERS: Absent Provider Internal Medicine Rheumatology; PCP Hospitalist; Visit Provider Radiology Diagnostic Radiology | DX: E28.39 Other primary ovarian failure (principal) | CPT/HCPCS: 77080 ==

== ENCOUNTER 2025-01-13 08:11 | Outpatient (AMB) | payer MEDICARE, SELFPAY ==
--- NOTE | 2025-01-13 08:11 | MHC.OFFVIS ---
Intake Visit Reasons: TV bone density results Intake Note: cell #[phone] Allergies penicillin V Allergy (Unknown, Verified 09/24/23 07:52) Rash Sulfa (Sulfonamide Antibiotics) Allergy (Unknown, Verified 09/24/23 07:52) Rash No Known Allergies Allergy (Verified 09/24/23 07:52) PFSH Medical History (Updated 09/18/24 @ 11:30 by Maribel Machado CNM) Lichen sclerosus of vulva Adrenal nodule Pancreatic cyst H pylori ulcer Surgical History (Updated 09/18/24 @ 10:09 by Maribel Machado CNM) History of cholecystectomy H/O: hysterectomy Family History Father Prostate cancer Sister Kidney cancer Mother Osteoporosis Paternal Grandmother Cervical cancer Social History Household Members: Spouse Housing: House Alcohol intake: never Patient Tobacco Use Status: Never used Tobacco service: No Current occupational status: employed 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
--- NOTE | 2025-01-13 08:13 | A.OFFVIS_ITS ---
Intake Visit Reasons: TV bone density results Allergies penicillin V Allergy (Unknown, Verified 09/24/23 07:52) Rash Sulfa (Sulfonamide Antibiotics) Allergy (Unknown, Verified 09/24/23 07:52) Rash No Known Allergies Allergy (Verified 09/24/23 07:52) HPI Comments Details: Tele Health Visit Total time I personally spent on visit and management today: 30 minutes. Time spent included review of pertinent office notes in the electronic health record; review of laboratory and imaging results; review of personal family medical history; discussing diagnosis and plan of care with the patient; documenting the encounter in the EMR. Patient presents to discuss: Bone density results. Currently taking [employer]aturals bones support supplements. 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 [address] [place] [address] Mammography Report Signed Patient: Cheyenne Alegria MR#: [id number] : 1955 Acct:[id number] Age/Sex: 69 / F ADM Date: 01/08/25 Loc: HO.MAMMO Attending Dr: Maribel Machado CNM Ordering Physician: Maribel Machado CNM Results: Date of Service: 01/08/25 Follow Up: Procedure(s): XR DEXA axial skeleton Accession Number(s): [id number] cc: Maribel Machado CNM; Sreekanth Walden DO~ EXAMINATION: DXA BONE DENSITY AXIAL HISTORY: Estrogen deficiency TECHNIQUE: [employer] Dual energy absorptiometry (DEXA) of the lumbar spine, total left hip, and femoral neck was performed. COMPARISON: Comparison is made with the prior examination dated 01/01/2023. FINDINGS: The bone mineral density of the lumbar spine is 0.989 with a T-score of -1.6, and a Z-score of 0.3. This represents a BMD change of -1.3% compared to the prior exam. This is not statistically significant. The bone mineral density of the left total hip is 0.735 with a T-score of -2.2, and a Z-score of -0.6. This represents a BMD change of 1.2% compared to the prior exam. This is statistically significant. The bone mineral density of the left femoral neck is 0.705 with a T-score of -2.4, and a Z-score of -0.6. This represents a BMD change of 2.9% compared to the prior exam. FRACTURE RISK: The FRAX index suggests a ten year probability of major osteoporotic fracture of 11.7%, and of hip fracture 2.8%. MM/XR DEXA axial skeleton IMPRESSION: Based on bone mineral density, and according to World Health Organization (WHO) criteria, the diagnosis is consistent with osteopenia. All bone density values are in grams per centimeter squared (g/cm2). Statistically, 68% of repeat scans fall within 1 SD (+/- 0.010 g/cm2 for AP spine L1-L4) and 1 SD (+/- 0.012 g/cm2 for femur total) FRAX is a trademark of the [employer] [place] for Metabolic Bone Disease, a World Health Organization (WHO) Collaborating Center. Electronically signed by: Marvin Zuluaga MD 01/08/2025 11:54 AM EDT Dictated By: Marvin Zuluaga MD Signed By: <Electronically signed by Marvin Zuluaga MD in OV> 01/08/25 1154 DD/ 1055 TD/TT: 01/08/25 1125 Comic Writer: Assessment & Plan Assessment & Plan (1) Osteopenia: Code(s): M85.80 - Other specified disorders of bone density and structure, unspecified site Category: Medical Qualifiers: Osteopenia location: unspecified Qualified Code(s): M85.80 - Other specified disorders of bone density and structure, unspecified site Plan: Reviewed bone density results and comparison from 2022. Continue with supplements. Plan Discussed: Bone density results. MM/XR DEXA axial skeleton IMPRESSION: Based on bone mineral density, and according to World Health Organization (WHO) criteria, the diagnosis is consistent with osteopenia. All bone density values are in grams per centimeter squared (g/cm2). Statistically, 68% of repeat scans fall within 1 SD (+/- 0.010 g/cm2 for AP spine L1-L4) and 1 SD (+/- 0.012 g/cm2 for femur total) FRAX is a trademark of the [employer] [place] for Metabolic Bone Disease, a World Health Organization (WHO) Collaborating Center. Electronically signed by: Marvin Zuluaga MD 01/08/2025 11:54 AM EDT Coding Level of Care Code Tele Est Pt Level 2 (38813) Diagnoses Osteopenia, unspecified location M85.80 Osteopenia location: unspecified
== END 2025-01-13 15:53 | disposition home or self-care (01) ==
LOC: HO.HWS 08:11
PROVIDERS: PCP Hospitalist; Visit Provider Advanced Practice Midwife
DX: M85.80 Other specified disorders of bone density and structure, unspecified site (principal)
CPT/HCPCS: 99212